=== PATIENT | female | born 1980 | race Caucasian/White ===

== ENCOUNTER 2019-01-20 20:01 | Emergency (ER) | payer BC ==
[~2019-01-20] VITALS: Ht 157.5 cm; Wt 48.5 kg
[2019-01-20 20:35] VITALS: Ht 157.5 cm; Wt 48.5 kg
[2019-01-20 21:16] LABS: BASOPHIL % 0.9 % (0-2); PLATELET COUNT 175 x10^3mcL (130-400); RED CELL DISTRIBUTION WIDTH 12.3 % (11.5-14.5)
[2019-01-20 21:21] LABS: CALCIUM 8.5 mg/dL (8.5-10.1); CARBON DIOXIDE 28.5 mmol/L (21-32); CHLORIDE SERUM 104 mmol/L (98-107); CREATININE SERUM 0.5 mg/dL (0.6-1.0); GFR1 > 60 mL/min; GLUCOSE SERUM 94 mg/dL (74-106); SODIUM SERUM 141 mmol/L (136-145)
[2019-01-20 21:26] LABS: ALBUMIN 4.1 g/dL (3.4-5.0); ALKALINE PHOSPHATASE 58 U/L (46-116); ALT/SGPT 13 U/L (14-59); AST/SGOT 12 U/L (15-37); BILIRUBIN TOTAL 0.5 mg/dL (0.20-1.00); CHOLESTEROL 156 mg/dL (<200); CHOLESTEROL/HDL RATIO 2.2; HDL CHOLESTEROL 71 mg/dL (40-60); TOTAL PROTEIN, SERUM 7.6 g/dL (6.4-8.2); TRIGLYCERIDES 28 mg/dL (<150)
[2019-01-20 22:26] LABS: UA SPECIFIC GRAVITY 1.015 (1.005-1.035); microscopic required? YES; urine erythrocyte TRACE (NEGATIVE)
[2019-01-20 22:52] VITALS: BP 118/70
== END 2019-01-20 22:52 | disposition home or self-care (01) ==
LOC: ED 20:01
PROVIDERS: Specialist
CPT/HCPCS: J2405; J7030